=== PATIENT | female | born 1965 | race Caucasian/White ===

== ENCOUNTER 2018-06-20 14:28 | Emergency (ER) | payer OTHER ==
[2018-06-20 14:38] VITALS: BP 127/62; PULSE 95; TEMP 98.6; BMI 29.7
--- NOTE | 2018-06-20 14:40 | PDOC ---
Rapid Medical Evaluation Chief Complaint: Cold Symptoms Medical Evaluation: Allergies Allergy/AdvReac Type Severity Reaction Status Date / Time No Known Allergies Allergy Verified 06/03/12 19:08 06/20/18 14:36 I have performed a brief in-person evaluation of this patient. The patient presents with a chief complaint of: cough, fevers x 5 days Pertinent physical exam findings: coarse rhochi, insp causes deep cough. I have ordered the following: CXR The patient will proceed to the ED for further evaluation Discharge Disposition - Diagnosis Cough - Referrals - Patient Instructions - Post Discharge Activity
[2018-06-20] MEDS ORDERED: ALBUTEROL SO4 2.5/IPRATROPIUM 0.5 INH SOL 3 ML VIAL.NEB. NEB ONE ×3 (15:21→16:58)
[2018-06-20] MEDS ORDERED: guaiFENesin/D-METHORPHAN HB 10 ML UNIT-DOSE CUPS PO ONE (15:21)
[2018-06-20] MEDS ORDERED: DEXAMETHASONE LIQUID 0.5 MG/5 ML 240 ML BULK BOTTLE PO ONE (15:21)
--- NOTE | 2018-06-20 15:21 | PDOC ---
History of Present Illness - General Chief Complaint: Cold Symptoms Stated Complaint: FEVER Time Seen by Provider: 06/20/18 14:50 History Source: Patient Exam Limitations: No Limitations - History of Present Illness Initial Comments: 06/20/18 16:14 Patient is a 52-year-old female with no past medical history who presents to the ER today for 7 days of intermittent fever, body aches and fatigue. Patient also admits to a cough that is both productive and nonproductive at times. Patient did not receive a flu shot this year. Denies difficulty breathing, shortness of breath, chest pain, nausea, vomiting and diarrhea. Past History - Travel Traveled outside of the country in the last 30 days: No Close contact w/someone who was outside of country & ill: No - Past Medical History Allergies/Adverse Reactions: Allergies Allergy/AdvReac Type Severity Reaction Status Date / Time No Known Allergies Allergy Verified 06/20/18 15:08 Home Medications: Ambulatory Orders No Home Medications 0 dose .ROUTE UTDICT 06/03/12 - Suicide/Smoking/Psychosocial Hx Smoking Status: No Smoking History: Never smoked Have you smoked in the past 12 months: No Number of Cigarettes Smoked Daily: 0 Information on smoking cessation initiated: No Hx Alcohol Use: No Drug/Substance Use Hx: No Review of Systems - Review of Systems Able to Perform ROS?: Yes Comments:: 06/20/18 16:05 CONSTITUTIONAL: Present: Fever, chills, body aches Absent: diaphoresis, generalized weakness, malaise, loss of appetite HEENT: Present: rhinorrhea, nasal congestion, throat pain. Absent: difficulty swallowing, mouth swelling, ear pain, eye pain, visual Changes CARDIOVASCULAR: Absent: chest pain, loss of consciousness, palpitations, irregular heart rate, peripheral edema RESPIRATORY: Present: Cough Absent: shortness of breath, dyspnea with exertion, orthopnea, wheezing, stridor, hemoptysis GASTROINTESTINAL: Absent: abdominal pain, abdominal distension, nausea, vomiting, diarrhea, constipation, melena, hematochezia SKIN: Absent: rash, itching, pallor NEUROLOGIC: Absent: headache, focal weakness or paresthesias, dizziness, unsteady gait, seizure, mental status changes, bladder or bowel incontinence Is the patient limited Vietnamese proficient: No *Physical Exam - Vital Signs Last Vital Signs Temp Pulse Resp BP Pulse Ox 98.6 F 95 H 20 127/62 97 06/20/18 14:34 06/20/18 14:34 06/20/18 14:34 06/20/18 14:34 06/20/18 14:34 - Physical Exam Comments: 06/20/18 16:06 GENERAL: Well developed, well nourished. Awake and alert. No acute distress. HEENT: Normocephalic, atraumatic. PERRLA, EOMI. No conjunctival pallor. Sclera are non- icteric. Moist mucous membranes. Oropharynx is clear. NECK: Supple. Full ROM. No JVD. Carotid pulses 2+ and symmetric, without bruits. No thyromegaly. No lymphadenopathy. CARDIOVASCULAR: Regular rate and rhythm. No murmurs, rubs, or gallops. Distal pulses are 2+ and symmetric. PULMONARY: No evidence of respiratory distress. Lungs clear to auscultation bilaterally. No wheezing, rales or rhonchi. ABDOMINAL: Soft. Non-tender. Non-distended. No rebound or guarding. No organomegaly. Normoactive bowel sounds. MUSCULOSKELETAL Normal range of motion at all joints. No bony deformities or tenderness. No CVA tenderness. EXTREMITIES: No cyanosis. No clubbing. No edema. No calf tenderness. SKIN: Warm and dry. Normal capillary refill. No rashes. No jaundice. NEUROLOGICAL: Alert, awake, appropriate. Cranial nerves 2-12 intact. No deficits to light touch and temperature in face, upper extremities and lower extremities. No motor deficits in the in face, upper extremities and lower extremities. Normoreflexic in the upper and lower extremities. Normal speech. Toes are down- going bilaterally. Gait is normal without ataxia. PSYCHIATRIC: Cooperative. Good eye contact. Appropriate mood and affect. Moderate Sedation - Procedure Monitoring Vital Signs: Procedure Monitoring Vital Signs Temperature 98.6 F 06/20/18 14:34 Pulse Rate 95 H 06/20/18 14:34 Respiratory Rate 20 06/20/18 14:34 Blood Pressure 127/62 06/20/18 14:34 O2 Sat by Pulse Oximetry (%) 97 06/20/18 14:34 Medical Decision Making - Medical Decision Making 06/21/18 11:28 Patient was discharged on downtime protocol Patient's [id number] male who presents to the ER for 7 days of flulike symptoms. Flu swab deferred as patient is afebrile without medication. Patient feels better after DuoNeb and prednisone. Cough most likely due to bronchitis after viral syndrome. EKG shows a rate 68 bpm normal sinus rhythm no acute ST-T wave changes are intervals normal axis. Strep negative. DC home *DC/Admit/Observation/Transfer Diagnosis at time of Disposition: Cough - Discharge Dispostion Disposition: HOME - Referrals - Patient Instructions - Post Discharge Activity
[2018-06-20] MEDS ORDERED: DEXAMETHASONE SOD PHOSPHATE 10 MG/1 ML VIAL ONE (15:31)
[2018-06-20] MEDS ORDERED: guaiFENesin/D-METHORPHAN HB 10 ML UNIT-DOSE CUPS ONE (15:32)
--- NOTE | 2018-06-23 10:56 | EKG ---
Test Reason : Blood Pressure : / mmHG Vent. Rate : 085 BPM Atrial Rate : 085 BPM P-R Int : 116 ms QRS Dur : 068 ms QT Int : 382 ms P-R-T Axes : 050 008 040 degrees QTc Int : 454 ms NORMAL SINUS RHYTHM POSSIBLE LEFT ATRIAL ENLARGEMENT LEFT VENTRICULAR HYPERTROPHY ABNORMAL ECG NO PREVIOUS ECGS AVAILABLE Confirmed by SHELL CANAS, MAJO ([id number]) on 06/23/2018 10:55:43 AM Referred By: NIRMAL Confirmed By:MAJO GOFF MD
== END 2018-06-20 22:00 | disposition home or self-care (01) ==
LOC: JERFT 14:28
PROC: 3E0F7GC Introduction of Other Therapeutic Substance into Respiratory Tract, Via Natural or Artificial Opening (ICD-10-PCS; principal; 2018-06-20)
DX: R05 Cough (principal)
CPT/HCPCS: 71046-TC-FY; 87070; 87880; 93005; 93010; 99281-25

== ENCOUNTER 2024-11-14 18:14 | Emergency (ER) | payer OTHER, BC ==
[2024-11-14 18:37] VITALS: BP 156/85; PULSE 92; RESP 17; TEMP 99; BMI 29.7
[2024-11-14] MEDS ORDERED: IBUPROFEN 600 MG TABLET (FP) PO ONE (19:50)
[2024-11-14] MEDS: IBUPROFEN 600 MG TABLET (FP) PO ONE (19:51)
[2024-11-14] MEDS: LIDOCAINE 5% TOPICAL PATCH TP ONE ×2 (20:18→20:28)
[2024-11-14] MEDS ORDERED: LIDOCAINE 5% TOPICAL PATCH ONE ×2 (20:18→20:25)
[2024-11-14] MEDS ORDERED: LIDOCAINE PATCH REMOVAL MC SCH ×2 (22:00)
== END 2024-11-14 20:30 | disposition home or self-care (01) ==
LOC: FER 18:14
DX: S16.1XXA Strain of muscle, fascia and tendon at neck level, initial encounter (principal); V49.40XA Driver injured in collision with unspecified motor vehicles in traffic accident, initial encounter
CPT/HCPCS: 70450-TC; 72125-TC; 99284-25